=== PATIENT | female | born 1980 | race Two or more races ===

== ENCOUNTER 2017-10-23 09:27 | Emergency (ER) | payer SELFPAY ==
[2017-10-23 09:41] VITALS: BP 113/57
[2017-10-23] MEDS ORDERED: Ketorolac 60 MG/2 ML SDV IM ONE (09:57)
--- NOTE | 2017-10-23 10:07 | EDM.PDOC ---
ED HPI GENERAL MEDICAL PROBLEM - General Chief Complaint: Upper Extremity Injury/Pain Stated Complaint: LT ARM HURTS Time Seen by Provider: 10/23/17 09:45 - History of Present Illness INITIAL COMMENTS - FREE TEXT/NARRATIVE: HISTORY AND PHYSICAL: History of present illness: The patient is a 37 y/o female who presents with acute onset of pain to her anterior left shoulder area extending into her biceps that started while she was at work today doing a repetitive behavior which involves a circular twisting motion. She says while she was doing his motion today she felt a "pop like sensation" in this region and has had pain. She has not taken anything for the pain and she came directly for work. The patient says she has a history of a biceps rupture in the past which took many months for them to diagnose and she did have surgical repair. Concerned about that but she did not know sending gross swelling of the biceps and there is discomfort when she engages her upper extremity at the elbow but she is able to do it. She has no weakness but there is discomfort. She has no neurosensory changes in the arm and no other systemic complaints or other trauma. Patient has a history of a hysterectomy. Review of systems: As per history of present illness and below otherwise all systems reviewed and negative. Past medical history: As per history of present illness and as reviewed below otherwise noncontributory. Surgical history: As per history of present illness and as reviewed below otherwise noncontributory. Social history: No reported history of drug or alcohol abuse. Family history: As per history of present illness and as reviewed below otherwise noncontributory. Physical exam: Gen.: Well-developed well-nourished female who is nontoxic. Vital signs reviewed by me HEENT: Atraumatic, normocephalic, negative for conjunctival pallor or scleral icterus, mucous membranes moist, throat clear, neck supple, nontender, trachea midline. Lungs: Clear to auscultation, breath sounds equal bilaterally, chest nontender. Heart: S1S2, regular rate and rhythm no overt murmurs Abdomen: Soft, nondistended, nontender. NABS. Pelvis: Deferred Genitourinary: Deferred. Rectal: Deferred. Extremities: Atraumatic appearing but there is discrete tenderness at palpation of the anterior shoulder area at the trigger point fullness as well as tenderness with palpation of the anterior humeral area and the biceps region. There is no evidence of any soft tissue swelling in the compartment is soft and there is no ecchymosis or falling up of the biceps musculature itself. I'm able to palpate the tendinous insertion of the biceps distally and on both passive and active range of motion there is no evidence of any muscular deformity. There is no bony tenderness of the elbow forearm wrist or hand and neurovascular is intact. The patient says that there is discomfort with movements that we are doing. The legs are, negative for cords or calf pain. Neurovascular unremarkable. Neuro: Awake, alert, oriented. Cranial nerves II through XII unremarkable. Cerebellum unremarkable. Motor and sensory unremarkable throughout. Exam nonfocal. Diagnostics: X-ray left shoulder/humerus Therapeutics: Toradol sling Impression: Left shoulder/biceps injury Definitive disposition and diagnosis as appropriate pending reevaluation and review of above. left upper arm Pain Score (Numeric/FACES): 7 - Related Data Allergies Allergy/AdvReac Type Severity Reaction Status Date / Time acetaminophen [From Percocet] Allergy Vomiting Verified 10/23/17 09:38 hydrocodone bitartrate Allergy Vomiting Verified 10/23/17 09:38 [From Lortab] oxycodone HCl [From Percocet] Allergy Vomiting Verified 10/23/17 09:38 Huckleberries Allergy Difficulty Uncoded 10/23/17 09:38 Swallowing Mushrooms Allergy Difficulty Uncoded 10/23/17 09:38 Swallowing Home Meds: Home Meds . 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 Social & Family History - Family History Family Medical History: Noncontributory - Tobacco Use Smoking Status *Q: Current Every Day Smoker Years of Tobacco use: 23 Packs/Tins Daily: 0.2 - Caffeine Use Caffeine Use: Reports: Coffee - Alcohol Use Days Per Week of Alcohol Use: 1 Number of Drinks Per Day: 6 Total Drinks Per Week: 6 - Recreational Drug Use Recreational Drug Use: No Drug Use in Last 12 Months: No Review of Systems - Review of Systems Review Of Systems: ROS reveals no pertinent complaints other than HPI. ED EXAM, GENERAL - Physical Exam Exam: See Below (See dictation) Course - Vital Signs Last Recorded V/S: Last Vital Signs Temp 36.4 C 10/23/17 09:38 Pulse 74 10/23/17 09:38 Resp 18 10/23/17 09:38 BP 113/57 L 10/23/17 09:38 Pulse Ox 96 10/23/17 09:38 - Orders/Labs/Meds Orders: Active Orders 24 hr Category Date Time Status DME for Discharge [COMM] Stat Oth 10/23/17 11:03 Ordered Meds: Medications Discontinued Medications Generic Name Dose Route Start Last Admin Trade Name Merrittq PRN Reason Stop Dose Admin Ketorolac Tromethamine 60 mg 10/23/17 09:57 10/23/17 10:17 Toradol IM 10/23/17 09:58 60 mg ONETIME ONE Administration Departure - Departure Time of Disposition: 11:05 Disposition: Home, Self-Care 01 Condition: Good Clinical Impression: Injury of left shoulder, Unspecified injury of muscle, fascia and tendon of other parts of biceps, left arm, sequela - Discharge Information Referrals: PCP,None [Primary Care Provider] - Forms: ED Department Discharge Additional Instructions: The following information is given to patients seen in the emergency department who are being discharged to home. This information is to outline your options for follow-up care. We provide all patients seen in our emergency department with a follow-up referral. The need for follow-up, as well as the timing and circumstances, are variable depending upon the specifics of your emergency department visit. If you don't have a primary care physician on staff, we will provide you with a referral. We always advise you to contact your personal physician following an emergency department visit to inform them of the circumstance of the visit and for follow-up with them and/or the need for any referrals to a consulting specialist. The emergency department will also refer you to a specialist when appropriate. This referral assures that you have the opportunity for followup care with a specialist. All of these measure are taken in an effort to provide you with optimal care, which includes your followup. Under all circumstances we always encourage you to contact your private physician who remains a resource for coordinating your care. When calling for followup care, please make the office aware that this follow-up is from your recent emergency room visit. If for any reason you are refused follow-up, please contact the [facility] emergency department at and ask to speak to the emergency department charge nurse. [facility]--Orthopedic clinic Professional [address] [address] Ice and elevate the area as much as possible and use medications as prescribed and needed. You may return to work but no use of the left upper extremity until you're seen in the orthopedic clinic. Wear sling at all times you're up and about and continue to move the hand wrist and elbow slowly and carefully to reduce swelling of these areas due to inactivity. - My Orders Last 24 Hours: My Active Orders 10/23/17 11:03 DME for Discharge [COMM] Stat - Assessment/Plan Last 24 Hours: My Active Orders 10/23/17 11:03 DME for Discharge [COMM] Stat
--- NOTE | 2017-10-23 10:52 | CR ---
EXAMINATION: Left shoulder HISTORY: Pain COMPARISON: None TECHNIQUE: 3 views FINDINGS/IMPRESSION: There is no acute osseous abnormality, dislocation, or fracture. Bone mineraliza tion and joint spaces appear normal.
--- NOTE | 2017-10-23 10:55 | CR ---
EXAMINATION: Left humerus HISTORY: Pain COMPARISON: None TECHNIQUE: 2 views FINDINGS/IMPRESSION: There is no acute osseous abnormality, dislocation, or fracture. Bone mineraliza tion and joint spaces appear preserved. No focal soft tissue swelling or elbow joint effusion.
== END 2017-10-23 11:24 | disposition home or self-care (01) ==
LOC: MW.ED 09:27
DX: S46.20 Unspecified injury of muscle, fascia and tendon of other parts of biceps (principal); S49.92XS Unspecified injury of left shoulder and upper arm, sequela; F17.210 Nicotine dependence, cigarettes, uncomplicated; Z98.890 Other specified postprocedural states; Z88.6 Allergy status to analgesic agent; Z88.5 Allergy status to narcotic agent; Z91.018 Allergy to other foods; X50.3XXS Overexertion from repetitive movements, sequela; Y99.0 Civilian activity done for income or pay
CPT/HCPCS: 73030; 73060; 96372; 99283; J1885; 99284

== ENCOUNTER 2018-07-01 19:47 | Emergency (ER) | payer BC | END 2018-07-01 20:48 | disposition left against medical advice (07) | LOC: MW.ED 19:47 | DX: Z53.21 Procedure and treatment not carried out due to patient leaving prior to being seen by health care provider (principal) ==

== ENCOUNTER 2018-12-14 08:20 | Emergency (ER) | payer BC ==
--- NOTE | 2018-12-14 08:34 | EDM.PDOC ---
ED HPI GENERAL MEDICAL PROBLEM - General Chief Complaint: Head Injury Stated Complaint: blurry vision Time Seen by Provider: 12/14/18 08:26 - History of Present Illness INITIAL COMMENTS - FREE TEXT/NARRATIVE: HISTORY AND PHYSICAL: History of present illness: Age 38-year-old female presents status post fall on Friday in which she struck her head this is a mechanical fall she states she was drinking was no reported loss of consciousness she presents today with concern of headache she denies neck pain visual disturbance numbness weakness or any other neurological signs or symptoms apart from headache Review of systems: As per history of present illness and below otherwise all systems reviewed and negative. Past medical history: As per history of present illness and as reviewed below otherwise noncontributory. Surgical history: As per history of present illness and as reviewed below otherwise noncontributory. Social history: No reported history of drug or alcohol abuse. Family history: As per history of present illness and as reviewed below otherwise noncontributory. Physical exam: HEENT: Atraumatic, normocephalic, pupils reactive, negative for conjunctival pallor or scleral icterus, mucous membranes moist, throat clear, neck supple, nontender, trachea midline. Lungs: Clear to auscultation, breath sounds equal bilaterally, chest nontender. Heart: S1S2, regular, negative for clicks, rubs, or JVD. Abdomen: Soft, nondistended, nontender. Negative for masses or hepatosplenomegaly. Negative for costovertebral tenderness. Pelvis: Stable nontender. Genitourinary: Deferred. Rectal: Deferred. Extremities: Atraumatic, negative for cords or calf pain. Neurovascular unremarkable. Neuro: Awake, alert, oriented. Cranial nerves II through XII unremarkable. Cerebellum unremarkable. Motor and sensory unremarkable throughout. Exam nonfocal. Diagnostics: CT brain Therapeutics: None Impression: #1 head injury Definitive disposition and diagnosis as appropriate pending reevaluation and review of above. - Related Data Allergies Allergy/AdvReac Type Severity Reaction Status Date / Time acetaminophen [From Percocet] Allergy Vomiting Verified 10/23/17 09:38 hydrocodone bitartrate Allergy Vomiting Verified 10/23/17 09:38 [From Lortab] oxycodone HCl [From Percocet] Allergy Vomiting Verified 10/23/17 09:38 Huckleberries Allergy Difficulty Uncoded 10/23/17 09:38 Swallowing Mushrooms Allergy Difficulty Uncoded 10/23/17 09:38 Swallowing Home Meds: Home Meds . 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 Social & Family History - Family History Family Medical History: Noncontributory - Caffeine Use Caffeine Use: Reports: Coffee ED ROS GENERAL - Review of Systems Review Of Systems: ROS reveals no pertinent complaints other than HPI. ED EXAM, HEAD INJURY - Physical Exam Exam: See Below (See dictation) Departure - Departure Time of Disposition: 08:33 Disposition: Home, Self-Care 01 Condition: Good Clinical Impression: Head injury - Discharge Information Referrals: PCP,Unknown [Primary Care Provider] - Additional Instructions: The following information is given to patients seen in the emergency department who are being discharged to home. This information is to outline your options for follow-up care. We provide all patients seen in our emergency department with a follow-up referral. The need for follow-up, as well as the timing and circumstances, are variable depending upon the specifics of your emergency department visit. If you don't have a primary care physician on staff, we will provide you with a referral. We always advise you to contact your personal physician following an emergency department visit to inform them of the circumstance of the visit and for follow-up with them and/or the need for any referrals to a consulting specialist. The emergency department will also refer you to a specialist when appropriate. This referral assures that you have the opportunity for followup care with a specialist. All of these measure are taken in an effort to provide you with optimal care, which includes your followup. Under all circumstances we always encourage you to contact your private physician who remains a resource for coordinating your care. When calling for followup care, please make the office aware that this follow-up is from your recent emergency room visit. If for any reason you are refused follow-up, please contact the [facility] emergency department at and asked to speak to the emergency department charge nurse. Motrin/Tylenol as directed follow-up primary medical doctor as needed as discussed and return as needed as discussed
[2018-12-14 08:43] VITALS: BP 117/70
--- NOTE | 2018-12-14 09:15 | CT ---
EXAMINATION: Non contrast CT head. Coronal and sagittal reformats. HISTORY: Head injury FINDINGS: No evidence of intra or extra axial hemorrhage, mass, midline shift, hydrocephalus or edema. No hypoattenuation changes in the major vascular territories to suggest acute infarct. No abnormal intracranial calcifications are detected. No evidence of substantial vascular calcifications. Tiny mucosal retention cyst within the right maxillary sinus. Paranasal sinuses, mastoid air cells, middle ears are otherwise intact. Orbits and globes are symmetric. Pituitary fossa appears unremarkable. The calvarium is intact. No evidence of skull fracture. IMPRESSION: No acute intracranial findings.
== END 2018-12-14 09:29 | disposition home or self-care (01) ==
LOC: MW.ED 08:20
DX: S09.90XA Unspecified injury of head, initial encounter (principal); F17.210 Nicotine dependence, cigarettes, uncomplicated; Z91.018 Allergy to other foods; Z88.8 Allergy status to other drugs, medicaments and biological substances; Z90.710 Acquired absence of both cervix and uterus; W01.198A Fall on same level from slipping, tripping and stumbling with subsequent striking against other object, initial encounter
CPT/HCPCS: 70450; 70450-26; 99283-25

== ENCOUNTER 2019-06-01 09:05 | Observation (INO) | payer BC, OTHER ==
--- NOTE | 2019-06-01 09:50 | EDM.PDOC ---
ED HPI GENERAL MEDICAL PROBLEM - General Chief Complaint: Respiratory Problem Stated Complaint: COUGH, CHEST PAIN, FEVER Time Seen by Provider: 06/01/19 09:19 Source of Information: Reports: Patient History Limitations: Reports: No Limitations - History of Present Illness INITIAL COMMENTS - FREE TEXT/NARRATIVE: History of present illness: []Patient has a history of sarcoidosis and has had a cough, shortness of breath , sore throat, fevers, chills and hoarseness for a week and a half. She was treated in another urgency room with a steroid shot and put on amoxicillin. His completed that without any relief of symptoms. Review of systems: As per history of present illness and below otherwise all systems reviewed and negative. Past medical history: As per history of present illness and as reviewed below otherwise noncontributory. Surgical history: As per history of present illness and as reviewed below otherwise noncontributory. Social history: No reported history of drug or alcohol abuse. Family history: As per history of present illness and as reviewed below otherwise noncontributory. Physical exam: General: Well developed, well nourished in NAD HEENT: Atraumatic, normocephalic, pupils reactive, negative for conjunctival pallor or scleral icterus, mucous membranes moist, throat clear, neck supple, nontender, trachea midline. No stridor Lungs: Bilateral rhonchi, chest nontender, no chest wall retractions Heart: S1S2, regular, negative for clicks, rubs, or JVD. Abdomen: NABS, Soft, nondistended, nontender. Negative for masses or hepatosplenomegaly. Negative for costovertebral tenderness. Pelvis: Stable nontender. Genitourinary: Deferred. Rectal: Deferred. Extremities: Atraumatic, negative for cords or calf pain. Neurovascular unremarkable. Neuro: Awake, alert, oriented. Cranial nerves II through XII unremarkable. Cerebellum unremarkable. Motor and sensory unremarkable throughout. Exam nonfocal. Skin:warm and dry Diagnostics: Chest x-ray, CBC, blood cultures, chemistry, lactic acid Therapeutics: IV hydration, DuoNeb, Levaquin IV ED Course: Patient is hypoxic at rest but has a normal O2 sat when trying to talk Impression: Bilateral Interstitial pneumonia Prescriptions: none Plan: Admit to hospitalist Definitive disposition and diagnosis as appropriate pending reevaluation and review of above. Throat Pain Score (Numeric/FACES): 6 - Related Data Allergies Allergy/AdvReac Type Severity Reaction Status Date / Time acetaminophen [From Percocet] Allergy Vomiting Verified 06/01/19 09:16 hydrocodone bitartrate Allergy Vomiting Verified 06/01/19 09:16 [From Lortab] oxycodone HCl [From Percocet] Allergy Vomiting Verified 06/01/19 09:16 Huckleberries Allergy Difficulty Uncoded 06/01/19 09:16 Swallowing Mushrooms Allergy Difficulty Uncoded 06/01/19 09:16 Swallowing Home Meds: Home Meds . 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 Social & Family History - Family History Family Medical History: Noncontributory - Tobacco Use Smoking Status *Q: Current Every Day Smoker Years of Tobacco use: 5 Packs/Tins Daily: 0.5 - Caffeine Use Caffeine Use: Reports: Tea - Recreational Drug Use Recreational Drug Use: No ED ROS GENERAL - Review of Systems Review Of Systems: See Below ED EXAM, GENERAL - Physical Exam Exam: See Below Course - Vital Signs Last Recorded V/S: Last Vital Signs Temp 98.1 F 06/01/19 11:42 Pulse 75 06/01/19 11:42 Resp 18 06/01/19 11:42 BP 97/54 L 06/01/19 11:42 Pulse Ox 91 L 06/01/19 11:42 - Orders/Labs/Meds Orders: Active Orders 24 hr Category Date Time Status Patient Status [ADT] Stat ADT 06/01/19 11:37 Active RT Aerosol Therapy [RC] ASDIRECTED Care 06/01/19 10:01 Active CULTURE BLOOD [BC] Stat Lab 06/01/19 10:33 Received CULTURE BLOOD [BC] Stat Lab 06/01/19 10:53 Results Sodium Chloride 0.9% [Saline Flush] Med 06/01/19 10:25 Active 10 ml FLUSH ASDIRECTED PRN Sodium Chloride 0.9% [Saline Flush] Med 06/01/19 10:25 Active 2.5 ml FLUSH ASDIRECTED PRN Blood Culture x2 Reflex Set [OM.PC] Stat Oth 06/01/19 10:25 Ordered Saline Lock Insert [OM.PC] Stat Oth 06/01/19 10:25 Ordered Medication Orders Acetaminophen (Tylenol) 650 mg PO Q4H PRN PRN Reason: Pain (Mild 1-3)/fever Enoxaparin Sodium (Lovenox) 40 mg SUBCUT Q24H [place] Azithromycin 250 mg/ Sodium (Chloride) 250 mls @ 250 mls/hr IV Q24H [place] Ceftriaxone Sodium/Dextrose 1 (gm/ Premix) 50 mls @ 100 mls/hr IV Q24H [place] Sodium Chloride (Normal Saline) 1,000 mls @ 100 mls/hr IV STAT ONE Stop: 06/01/19 22:07 Ondansetron HCl (Zofran Odt) 4 mg PO Q4H PRN PRN Reason: nausea, able to take PO Ondansetron HCl (Zofran) 4 mg IVPUSH Q4H PRN PRN Reason: Nausea Sodium Chloride (Saline Flush) 10 ml FLUSH ASDIRECTED PRN PRN Reason: Keep Vein Open Last Admin: 06/01/19 10:37 Dose: 10 ml Sodium Chloride (Saline Flush) 2.5 ml FLUSH ASDIRECTED PRN PRN Reason: Keep Vein Open Last Admin: 06/01/19 10:37 Dose: 2.5 ml Labs: Laboratory Tests 06/01/19 06/01/19 06/01/19 Range/Units 10:33 10:33 10:33 WBC 11.58 H (4.0-11.0) K/uL RBC 4.46 (4.30-5.90) M/uL Hgb 13.5 (12.0-16.0) g/dL Hct 41.5 (36.0-46.0) % MCV 93.0 (80.0-98.0) fL MCH 30.3 (27.0-32.0) pg MCHC 32.5 (31.0-37.0) g/dL RDW Std Deviation 44.7 (28.0-62.0) fl RDW Coeff of Christin 13 (11.0-15.0) % Plt Count 317 (150-400) K/uL MPV 10.40 (7.40-12.00) fL Neut % (Auto) 73.7 (48.0-80.0) % Lymph % (Auto) 18.3 (16.0-40.0) % Cecil % (Auto) 6.1 (0.0-15.0) % Eos % (Auto) 1.6 (0.0-7.0) % Baso % (Auto) 0.3 (0.0-1.5) % Neut # (Auto) 8.5 H (1.4-5.7) K/uL Lymph # (Auto) 2.1 (0.6-2.4) K/uL Cecil # (Auto) 0.7 (0.0-0.8) K/uL Eos # (Auto) 0.2 (0.0-0.7) K/uL Baso # (Auto) 0.0 (0.0-0.1) K/uL Nucleated RBC % 0.0 /100WBC Nucleated RBCs # 0 K/uL Lactate 0.9 (0.20-2.00) mmol/L Sodium 140 (136-145) mmol/L Potassium 3.5 (3.5-5.1) mmol/L Chloride 104 (98-107) mmol/L Carbon Dioxide 24.6 (21.0-32.0) mmol/L BUN 7 (7.0-18.0) mg/dL Creatinine 0.5 L (0.6-1.0) mg/dL Est Cr Clr Drug Dosing 131.74 mL/min Estimated GFR (MDRD) > 60.0 ml/min Glucose 93 (74-106) mg/dL Calcium 8.9 (8.5-10.1) mg/dL Total Bilirubin 0.5 (0.2-1.0) mg/dL AST 17 (15-37) IU/L ALT 19 (14-63) IU/L Alkaline Phosphatase 72 (46-116) U/L Total Protein 7.8 (6.4-8.2) g/dL Albumin 3.2 L (3.4-5.0) g/dL Globulin 4.6 H (2.6-4.0) g/dL Albumin/Globulin Ratio 0.7 L (0.9-1.6) Meds: Medications Generic Name Dose Route Start Last Admin Trade Name Merrittq PRN Reason Stop Dose Admin Acetaminophen 650 mg 06/01/19 12:04 Tylenol PO Q4H PRN Pain (Mild 1-3)/fever Enoxaparin Sodium 40 mg 06/01/19 12:15 Lovenox SUBCUT Q24H [place] Azithromycin 250 mg/ Sodium 250 mls @ 250 mls/hr 06/01/19 12:15 Chloride IV Q24H [place] Ceftriaxone Sodium/Dextrose 1 50 mls @ 100 mls/hr 06/01/19 12:15 gm/ Premix IV Q24H [place] Sodium Chloride 1,000 mls @ 100 mls/hr 06/01/19 12:08 Normal Saline IV 06/01/19 22:07 STAT ONE Ondansetron HCl 4 mg 06/01/19 12:04 Zofran Odt PO Q4H PRN nausea, able to take PO Ondansetron HCl 4 mg 06/01/19 12:04 Zofran IVPUSH Q4H PRN Nausea Sodium Chloride 10 ml 06/01/19 10:25 06/01/19 10:37 Saline Flush FLUSH 10 ml ASDIRECTED PRN Administration Keep Vein Open Sodium Chloride 2.5 ml 06/01/19 10:25 06/01/19 10:37 Saline Flush FLUSH 2.5 ml ASDIRECTED PRN Administration Keep Vein Open Discontinued Medications Generic Name Dose Route Start Last Admin Trade Name Merrittq PRN Reason Stop Dose Admin Albuterol/Ipratropium 3 ml 06/01/19 10:01 06/01/19 10:06 Duoneb 3.0-0.5 Mg/3 Ml NEB 06/01/19 10:02 3 ml ONETIME ONE Administration Levofloxacin/Dextrose 500 mg/ 100 mls @ 100 mls/hr 06/01/19 10:25 06/01/19 11 :42 Premix IV 06/01/19 11:24 100 mls/hr ONETIME ONE Administration Sodium Chloride 1,000 mls @ 999 mls/hr 06/01/19 10:26 06/01/19 10:36 Normal Saline IV 06/01/19 11:26 999 mls/hr .Bolus ONE Administration Departure - Departure Time of Disposition: 12:17 Disposition: Admitted As Inpatient 67 Condition: Good Clinical Impression: Interstitial pneumonia - Discharge Information - My Orders Last 24 Hours: My Active Orders 06/01/19 10:01 RT Aerosol Therapy [RC] ASDIRECTED 06/01/19 10:25 Sodium Chloride 0.9% [Saline Flush] 10 ml FLUSH ASDIRECTED PRN Sodium Chloride 0.9% [Saline Flush] 2.5 ml FLUSH ASDIRECTED PRN Blood Culture x2 Reflex Set [OM.PC] Stat Saline Lock Insert [OM.PC] Stat 06/01/19 10:33 CULTURE BLOOD [BC] Stat 06/01/19 10:53 CULTURE BLOOD [BC] Stat 06/01/19 11:37 Patient Status [ADT] Stat - Assessment/Plan Last 24 Hours: My Active Orders 06/01/19 10:01 RT Aerosol Therapy [RC] ASDIRECTED 06/01/19 10:25 Sodium Chloride 0.9% [Saline Flush] 10 ml FLUSH ASDIRECTED PRN Sodium Chloride 0.9% [Saline Flush] 2.5 ml FLUSH ASDIRECTED PRN Blood Culture x2 Reflex Set [OM.PC] Stat Saline Lock Insert [OM.PC] Stat 06/01/19 10:33 CULTURE BLOOD [BC] Stat 06/01/19 10:53 CULTURE BLOOD [BC] Stat 06/01/19 11:37 Patient Status [ADT] Stat
[2019-06-01] MEDS ORDERED: Albuterol/Ipratropium 3.0-0.5 MG/3 ML Neb Soln NEB ONE (10:01)
[2019-06-01] MEDS ORDERED: Sodium Chloride 0.9% 2.5 ML Syringe FLUSH PRN (10:25)
[2019-06-01] MEDS ORDERED: Levofloxacin/Dextrose 5%-Water 500 MG in Premix Bag 1 BAG IV ONE (10:25)
[2019-06-01] MEDS ORDERED: Sodium Chloride 0.9% 10 ML Syringe FLUSH PRN (10:25)
[2019-06-01] MEDS ORDERED: Sodium Chloride 0.9% 1,000 ML IV ONE ×3 (10:26→18:19)
--- NOTE | 2019-06-01 10:36 | CR ---
CHEST 2 VIEWS INDICATION: Sore throat. Cough. Congestion. COMPARISON: Two-view chest 10/18/2015. IMPRESSION: 1. The lung volumes are decreased. 2. There are patchy areas of alveolar opacity which could suggest possible areas of pneumonia in the right midlung possibly in the superior segment lower lobe and in the left lower lobe. 3. Radiographic follow up is suggested after treatment to evaluate resolution. FINDINGS: The lung volumes are decreased. Patchy areas of possible alveolar opacity are suggested in the right mid lung on the PA view and in the left lower lobe on both views. Heart size is normal with mild crowding of vascular markings allowing for technique and low lung volumes. No effusions or pneumothorax. Dictated by Pedro Reyna MD @ Jun 01 2019 10:35AM Signed by Dr. Pedro Reyna @ Jun 01 2019 10:35AM
[2019-06-01 11:25] LABS: CHLORIDE,CL 104 mmol/L (98-107); SODIUM,NA 140 mmol/L (136-145)
[2019-06-01] MEDS ORDERED: Ondansetron 4 MG Tab.DIS PO PRN (12:04)
[2019-06-01] MEDS ORDERED: Ondansetron 4 MG/2 ML SDV IVPUSH PRN (12:04)
[2019-06-01] MEDS ORDERED: Acetaminophen 325 MG Tab PO PRN (12:04)
[2019-06-01] MEDS ORDERED: Azithromycin 250 MG in Sodium Chloride 0.9% 250 ML IV SCH (12:15)
[2019-06-01] MEDS ORDERED: Enoxaparin 40 MG/0.4 ML Syringe SUBCUT SCH (12:15)
[2019-06-01] MEDS ORDERED: cefTRIAXone 1 GM in Premix Bag 1 BAG IV SCH (12:15)
[2019-06-01] MEDS ORDERED: Azithromycin 500 MG in Sodium Chloride 0.9% 250 ML IV SCH ×2 (13:15→15:01)
[2019-06-01] MEDS ORDERED: Phenol 1.4% Oral Spray 177 ML Bottle MUCMEM PRN (14:28)
[2019-06-01] MEDS: predniSONE 20 MG Tab PO SCH (15:15)
[2019-06-02 06:26] LABS: CHLORIDE,CL 107 mmol/L (98-107); SODIUM,NA 141 mmol/L (136-145)
[2019-06-02] MEDS: predniSONE 20 MG Tab PO SCH (09:02)
[2019-06-02 09:18] VITALS: BP 107/55
--- NOTE | 2019-06-02 10:32 | PCM.DCSUM1 ---
<Jackson Carter - Last Filed: 06/02/19 10:27> Discharge Summary - Hospital Course Free Text/Narrative:: [id number]-female admitted for community acquire pneumonia. She has a PMH of sarcoidosis. CXR on admission showed opacities which could represent developing pneumonia in right mid lung and left lower lobe. Patient's WBC count was slightly elevated but normalized on day of discharge. She was started on IV ceftriaxone, IV azithromycin and oral prednisone. She remained afebrile during the course of her hospitalization. She tolerated oral diet well. She was discharged on a 5 day course of doxycycline and 3 more days of prednisone 40 mg daily. She was also given instructions to use incentive spirometer. Patient instructed to follow-up with her PCP and a last sawyer for her sarcoidosis. - Discharge Data Discharge Date: 06/02/19 Discharge Disposition: Home, Self-Care 01 Condition: Fair - Discharge Diagnosis/Problem(s) (1) Community acquired pneumonia SNOMED Code(s): 738049056 ICD Code: J18.9 - PNEUMONIA, UNSPECIFIED ORGANISM Status: Acute (2) Sarcoidosis SNOMED Code(s): 85082922 ICD Code: D86.9 - SARCOIDOSIS, UNSPECIFIED Status: Acute - Patient Instructions Diet: Regular Diet as Tolerated Activity: As Tolerated Notify Provider of: Fever, Increased Pain, Swelling and Redness, Drainage, Nausea and/or Vomiting - Discharge Plan *PRESCRIPTION DRUG MONITORING PROGRAM REVIEWED*: Not Applicable *COPY OF PRESCRIPTION DRUG MONITORING REPORT IN PATIENT EDELMIRA: Not Applicable Prescriptions/Med Rec: Albuterol [Ventolin HFA] 2 puff INH Q4H PRN #1 each PRN Reason: Other Benzonatate [Tessalon Perle] 100 mg PO TID PRN 5 Days #15 capsule PRN Reason: Cough Doxycycline [Vibramycin] 100 mg PO BID 5 Days #10 cap predniSONE [Prednisone] 40 mg PO DAILY 3 Days #6 tablet Home Medications: Home Meds Albuterol [Ventolin HFA] 2 puff INH Q4H PRN #1 each 06/02/19 [Rx] Benzonatate [Tessalon Perle] 100 mg PO TID PRN 5 Days #15 capsule 06/02/19 [Rx] Doxycycline [Vibramycin] 100 mg PO BID 5 Days #10 cap 06/02/19 [Rx] predniSONE [Prednisone] 40 mg PO DAILY 3 Days #6 tablet 06/02/19 [Rx] Patient Handouts: Albuterol inhalation aerosol, Doxycycline tablets or capsules , Prednisone tablets, Benzonatate capsules, Community-Acquired Pneumonia, Adult , [id number] Referrals: [facility] [Outside] Lesvia Philip MD [Ordering Only Provider] - 06/09/19 8:30 am - Discharge Summary/Plan Comment DC Time >30 min.: No - Patient Data Vitals - Most Recent: Last Vital Signs Temp 98.4 F 06/02/19 08:00 Pulse 67 06/02/19 08:00 Resp 18 06/02/19 08:00 BP 107/55 L 06/02/19 08:00 Pulse Ox 94 L 06/02/19 08:00 Weight - Most Recent: 76.521 kg I&O - Last 24 hours: Intake & Output 06/01/19 06/02/19 06/02/19 22:59 06:59 14:59 Intake Total 1740 970 Output Total 400 1800 Balance 1340 -830 Lab Results - Last 24 hrs: Laboratory Results - last 24 hr 06/01/19 06/01/19 06/01/19 Range/Units 10:33 10:33 10:33 WBC 11.58 H (4.0-11.0) K/uL RBC 4.46 (4.30-5.90) M/uL Hgb 13.5 (12.0-16.0) g/dL Hct 41.5 (36.0-46.0) % MCV 93.0 (80.0-98.0) fL MCH 30.3 (27.0-32.0) pg MCHC 32.5 (31.0-37.0) g/dL RDW Std Deviation 44.7 (28.0-62.0) fl RDW Coeff of Christin 13 (11.0-15.0) % Plt Count 317 (150-400) K/uL MPV 10.40 (7.40-12.00) fL Neut % (Auto) 73.7 (48.0-80.0) % Lymph % (Auto) 18.3 (16.0-40.0) % [place] % (Auto) 6.1 (0.0-15.0) % Eos % (Auto) 1.6 (0.0-7.0) % Baso % (Auto) 0.3 (0.0-1.5) % Neut # (Auto) 8.5 H (1.4-5.7) K/uL Lymph # (Auto) 2.1 (0.6-2.4) K/uL [place] # (Auto) 0.7 (0.0-0.8) K/uL Eos # (Auto) 0.2 (0.0-0.7) K/uL Baso # (Auto) 0.0 (0.0-0.1) K/uL Add Manual Diff Nucleated RBC % 0.0 /100WBC Nucleated RBCs # 0 K/uL Lactate 0.9 (0.20-2.00) mmol/L Sodium 140 (136-145) mmol/L Potassium 3.5 (3.5-5.1) mmol/L Chloride 104 (98-107) mmol/L Carbon Dioxide 24.6 (21.0-32.0) mmol/L BUN 7 (7.0-18.0) mg/dL Creatinine 0.5 L (0.6-1.0) mg/dL Est Cr Clr Drug Dosing 131.74 mL/min Estimated GFR (MDRD) > 60.0 ml/min Glucose 93 (74-106) mg/dL Calcium 8.9 (8.5-10.1) mg/dL Total Bilirubin 0.5 (0.2-1.0) mg/dL AST 17 (15-37) IU/L ALT 19 (14-63) IU/L Alkaline Phosphatase 72 (46-116) U/L Total Protein 7.8 (6.4-8.2) g/dL Albumin 3.2 L (3.4-5.0) g/dL Globulin 4.6 H (2.6-4.0) g/dL Albumin/Globulin Ratio 0.7 L (0.9-1.6) 06/02/19 06/02/19 06/02/19 Range/Units 05:52 05:52 05:52 WBC Cancelled 9.18 (4.0-11.0) K/uL RBC Cancelled 3.93 L (4.30-5.90) M/uL Hgb Cancelled 11.7 L (12.0-16.0) g/dL Hct Cancelled 37.1 (36.0-46.0) % MCV Cancelled 94.4 (80.0-98.0) fL MCH Cancelled 29.8 (27.0-32.0) pg MCHC Cancelled 31.5 (31.0-37.0) g/dL RDW Std Deviation Cancelled 45.3 (28.0-62.0) fl RDW Coeff of Christin Cancelled 13 (11.0-15.0) % Plt Count Cancelled 327 (150-400) K/uL MPV Cancelled 10.10 (7.40-12.00) fL Neut % (Auto) Cancelled 65.9 (48.0-80.0) % Lymph % (Auto) Cancelled 23.6 (16.0-40.0) % [place] % (Auto) Cancelled 9.2 (0.0-15.0) % Eos % (Auto) Cancelled 1.0 (0.0-7.0) % Baso % (Auto) Cancelled 0.3 (0.0-1.5) % Neut # (Auto) Cancelled 6.1 H (1.4-5.7) K/uL Lymph # (Auto) Cancelled 2.2 (0.6-2.4) K/uL [place] # (Auto) Cancelled 0.8 (0.0-0.8) K/uL Eos # (Auto) Cancelled 0.1 (0.0-0.7) K/uL Baso # (Auto) Cancelled 0.0 (0.0-0.1) K/uL Add Manual Diff Cancelled Nucleated RBC % Cancelled 0.0 /100WBC Nucleated RBCs # Cancelled 0 K/uL Lactate (0.20-2.00) mmol/L Sodium 141 (136-145) mmol/L Potassium 3.9 (3.5-5.1) mmol/L Chloride 107 (98-107) mmol/L Carbon Dioxide 30.4 (21.0-32.0) mmol/L BUN 6 L (7.0-18.0) mg/dL Creatinine 0.5 L (0.6-1.0) mg/dL Est Cr Clr Drug Dosing 131.74 mL/min Estimated GFR (MDRD) > 60.0 ml/min Glucose 107 H (74-106) mg/dL Calcium 8.5 (8.5-10.1) mg/dL Total Bilirubin (0.2-1.0) mg/dL AST (15-37) IU/L ALT (14-63) IU/L Alkaline Phosphatase (46-116) U/L Total Protein (6.4-8.2) g/dL Albumin (3.4-5.0) g/dL Globulin (2.6-4.0) g/dL Albumin/Globulin Ratio (0.9-1.6) CIELO Results - Last 24 hrs: Microbiology 06/01/19 12:46 Group A Streptococcus Rapid Screen - Final Throat NEGATIVE STREP A SCREEN REFERENCE RANGE: NEGATIVE 06/01/19 11:00 Legionella Antigen - Final Urine, Clean Catch 06/01/19 11:00 Streptococcus pneumoniae Ag Screen - Final Urine 06/01/19 10:53 Anaerobic Blood Culture - Final Blood - Venous - Lab Draw Med Orders - Current: Current Medications Acetaminophen (Tylenol) 650 mg PO Q4H PRN PRN Reason: Pain (Mild 1-3)/fever Last Admin: 06/01/19 13:39 Dose: 650 mg Enoxaparin Sodium (Lovenox) 40 mg SUBCUT Q24H [facility] Last Admin: 06/01/19 13:31 Dose: 40 mg Ceftriaxone Sodium/Dextrose 1 (gm/ Premix) 50 mls @ 100 mls/hr IV Q24H [facility] Last Admin: 06/01/19 13:26 Dose: 100 mls/hr Azithromycin 500 mg/ Sodium (Chloride) 250 mls @ 250 mls/hr IV Q24H [facility] Last Admin: 06/01/19 15:16 Dose: 250 mls/hr Ondansetron HCl (Zofran Odt) 4 mg PO Q4H PRN PRN Reason: nausea, able to take PO Ondansetron HCl (Zofran) 4 mg IVPUSH Q4H PRN PRN Reason: Nausea Phenol/Menthol (Chloraseptic Throat [place]) 0 ml MUCMEM Q2H PRN PRN Reason: Sore Throat Last Admin: 06/01/19 20:57 Dose: 5 spray Prednisone (Prednisone) 40 mg PO WITHBREAKFAST [place] Stop: 06/06/19 14:31 Last Admin: 06/02/19 09:02 Dose: 40 mg Sodium Chloride (Saline Flush) 10 ml FLUSH ASDIRECTED PRN PRN Reason: Keep Vein Open Last Admin: 06/01/19 10:37 Dose: 10 ml Sodium Chloride (Saline Flush) 2.5 ml FLUSH ASDIRECTED PRN PRN Reason: Keep Vein Open Last Admin: 06/01/19 10:37 Dose: 2.5 ml Discontinued Medications Albuterol/Ipratropium (Duoneb 3.0-0.5 Mg/3 Ml) 3 ml NEB ONETIME ONE Stop: 06/01/19 10:02 Last Admin: 06/01/19 10:06 Dose: 3 ml Levofloxacin/Dextrose 500 mg/ (Premix) 100 mls @ 100 mls/hr IV ONETIME ONE Stop: 06/01/19 11:24 Last Admin: 06/01/19 11:42 Dose: 100 mls/hr Sodium Chloride (Normal Saline) 1,000 mls @ 999 mls/hr IV .Bolus ONE Stop: 06/01/19 11:26 Last Admin: 06/01/19 10:36 Dose: 999 mls/hr Azithromycin 250 mg/ Sodium (Chloride) 250 mls @ 250 mls/hr IV Q24H [place] Last Admin: 06/01/19 14:30 Dose: Not Given Sodium Chloride (Normal Saline) 1,000 mls @ 100 mls/hr IV STAT ONE Stop: 06/01/19 22:07 Last Admin: 06/01/19 13:14 Dose: 100 mls/hr Azithromycin 500 mg/ Sodium (Chloride) 250 mls @ 250 mls/hr IV Q24H [facility] Last Admin: 06/01/19 16:03 Dose: Not Given Sodium Chloride (Normal Saline) 1,000 mls @ 75 mls/hr IV STAT ONE Stop: 06/02/19 07:38 Last Admin: 06/01/19 22:47 Dose: 75 mls/hr <Miguel Angel Sauer - Last Filed: 06/02/19 13:10> Discharge Summary - Hospital Course HPI Initial Comments: I have seen and examined the patient independently of the medical assembler, Dr. Raul MD. I have reviewed and approve of the plan of care as outlined by the resident. I have discussed the case with the resident. Please see orders. - Patient Data Vitals - Most Recent: Last Vital Signs Temp 36.9 C 08/14/19 08:00 Pulse 67 06/02/19 08:00 Resp 18 06/02/19 08:00 BP 107/55 L 06/02/19 08:00 Pulse Ox 94 L 06/02/19 08:00 I&O - Last 24 hours: Intake & Output 06/01/19 06/02/19 06/02/19 22:59 06:59 14:59 Intake Total 1740 970 Output Total 400 1800 Balance 1340 -830 Lab Results - Last 24 hrs: Laboratory Results - last 24 hr 06/02/19 06/02/19 06/02/19 Range/Units 05:52 05:52 05:52 WBC Cancelled 9.18 RBC Cancelled 3.93 L Hgb Cancelled 11.7 L Hct Cancelled 37.1 MCV Cancelled 94.4 MCH Cancelled 29.8 MCHC Cancelled 31.5 RDW Std Deviation Cancelled 45.3 RDW Coeff of Christin Cancelled 13 Plt Count Cancelled 327 MPV Cancelled 10.10 Neut % (Auto) Cancelled 65.9 Lymph % (Auto) Cancelled 23.6 [place] % (Auto) Cancelled 9.2 Eos % (Auto) Cancelled 1.0 Baso % (Auto) Cancelled 0.3 Neut # (Auto) Cancelled 6.1 H Lymph # (Auto) Cancelled 2.2 [place] # (Auto) Cancelled 0.8 Eos # (Auto) Cancelled 0.1 Baso # (Auto) Cancelled 0.0 Add Manual Diff Cancelled Nucleated RBC % Cancelled 0.0 Nucleated RBCs # Cancelled 0 Sodium 141 (136-145) mmol/L Potassium 3.9 (3.5-5.1) mmol/L Chloride 107 (98-107) mmol/L Carbon Dioxide 30.4 (21.0-32.0) mmol/L BUN 6 L (7.0-18.0) mg/dL Creatinine 0.5 L (0.6-1.0) mg/dL Est Cr Clr Drug Dosing 131.74 mL/min Estimated GFR (MDRD) > 60.0 ml/min Glucose 107 H (74-106) mg/dL Calcium 8.5 (8.5-10.1) mg/dL CIELO Results - Last 24 hrs: Microbiology 06/01/19 10:53 Aerobic Blood Culture - Preliminary Blood - Venous - Lab Draw NO GROWTH AFTER 1 DAY Anaerobic Blood Culture - Final 06/01/19 10:33 Aerobic Blood Culture - Preliminary Blood - Venous NO GROWTH AFTER 1 DAY Anaerobic Blood Culture - Preliminary NO GROWTH AFTER 1 DAY 06/01/19 12:46 Group A Streptococcus Rapid Screen - Final Throat NEGATIVE STREP A SCREEN REFERENCE RANGE: NEGATIVE 06/01/19 11:00 Legionella Antigen - Final Urine, Clean Catch 06/01/19 11:00 Streptococcus pneumoniae Ag Screen - Final Urine Med Orders - Current: Current Medications Discontinued Medications Acetaminophen (Tylenol) 650 mg PO Q4H PRN PRN Reason: Pain (Mild 1-3)/fever Last Admin: 06/01/19 13:39 Dose: 650 mg Albuterol/Ipratropium (Duoneb 3.0-0.5 Mg/3 Ml) 3 ml NEB ONETIME ONE Stop: 06/01/19 10:02 Last Admin: 06/01/19 10:06 Dose: 3 ml Enoxaparin Sodium (Lovenox) 40 mg SUBCUT Q24H [facility] Last Admin: 06/01/19 13:31 Dose: 40 mg Levofloxacin/Dextrose 500 mg/ (Premix) 100 mls @ 100 mls/hr IV ONETIME ONE Stop: 06/01/19 11:24 Last Admin: 06/01/19 11:42 Dose: 100 mls/hr Sodium Chloride (Normal Saline) 1,000 mls @ 999 mls/hr IV .Bolus ONE Stop: 06/01/19 11:26 Last Admin: 06/01/19 10:36 Dose: 999 mls/hr Azithromycin 250 mg/ Sodium (Chloride) 250 mls @ 250 mls/hr IV Q24H [facility] Last Admin: 06/01/19 14:30 Dose: Not Given Ceftriaxone Sodium/Dextrose 1 (gm/ Premix) 50 mls @ 100 mls/hr IV Q24H [facility] Last Admin: 06/01/19 13:26 Dose: 100 mls/hr Sodium Chloride (Normal Saline) 1,000 mls @ 100 mls/hr IV STAT ONE Stop: 06/01/19 22:07 Last Admin: 06/01/19 13:14 Dose: 100 mls/hr Azithromycin 500 mg/ Sodium (Chloride) 250 mls @ 250 mls/hr IV Q24H [facility] Last Admin: 06/01/19 16:03 Dose: Not Given Azithromycin 500 mg/ Sodium (Chloride) 250 mls @ 250 mls/hr IV Q24H [place] Last Admin: 06/01/19 15:16 Dose: 250 mls/hr Sodium Chloride (Normal Saline) 1,000 mls @ 75 mls/hr IV STAT ONE Stop: 06/02/19 07:38 Last Admin: 06/01/19 22:47 Dose: 75 mls/hr Ondansetron HCl (Zofran Odt) 4 mg PO Q4H PRN PRN Reason: nausea, able to take PO Ondansetron HCl (Zofran) 4 mg IVPUSH Q4H PRN PRN Reason: Nausea Phenol/Menthol (Chloraseptic Throat [place]) 0 ml MUCMEM Q2H PRN PRN Reason: Sore Throat Last Admin: 06/01/19 20:57 Dose: 5 spray Prednisone (Prednisone) 40 mg PO WITHBREAKFAST [place] Stop: 06/06/19 14:31 Last Admin: 06/02/19 09:02 Dose: 40 mg Sodium Chloride (Saline Flush) 10 ml FLUSH ASDIRECTED PRN PRN Reason: Keep Vein Open Last Admin: 06/01/19 10:37 Dose: 10 ml Sodium Chloride (Saline Flush) 2.5 ml FLUSH ASDIRECTED PRN PRN Reason: Keep Vein Open Last Admin: 06/01/19 10:37 Dose: 2.5 ml
== END 2019-06-02 10:35 | disposition home or self-care (01) ==
LOC: MW.ED 09:05 → MW.MS 11:43
PROVIDERS: ADMIT Internal Medicine; ATTEND Internal Medicine
DX: J18.1 Lobar pneumonia, unspecified organism (principal); D86.9 Sarcoidosis, unspecified; Z88.5 Allergy status to narcotic agent; Z91.018 Allergy to other foods
CPT/HCPCS: 36415; 71046; 80048; 80053; 83605; 85025; 87040; 87081; 87880; 87899; 94640; 96361; 96365; 99284; A9270; J0456; J0696; J1650; J1956; J7040; J7050; 96360; 96367; 96372; 96375; G0378; J7620-GY

== ENCOUNTER 2019-10-05 18:48 | Emergency (ER) | payer BC, OTHER ==
--- NOTE | 2019-10-05 19:27 | EDM.PDOC ---
ED HPI GENERAL MEDICAL PROBLEM - General Chief Complaint: Respiratory Problem Stated Complaint: PT HAS FLU SYMPTOMS Time Seen by Provider: 10/05/19 19:19 Source of Information: Reports: Patient History Limitations: Reports: No Limitations - History of Present Illness INITIAL COMMENTS - FREE TEXT/NARRATIVE: HISTORY AND PHYSICAL: History of present illness: Patient is a 39-year-old female who presents to the emergency room with complaints of subjective fevers, generalized body aches, cough, headache, nausea , and several loose stools which all have started this morning. She is concerned she may have the flu or pneumonia. Patient denies any injury/trauma, change in vision, syncope or near syncope. Denies any chest pain, neck/back pain or shortness of breath. Denies any abdominal pain, vomiting, constipation or dysuria. Has not noted any blood in urine or stool. Denies any chance of . Patient has been eating and drinking appropriately. Review of systems: As per history of present illness and below otherwise all systems reviewed and negative. Past medical history: As per history of present illness and as reviewed below otherwise noncontributory. Surgical history: As per history of present illness and as reviewed below otherwise noncontributory. Social history: See social history for further information Family history: As per history of present illness and as reviewed below otherwise noncontributory. Physical exam: General: Well developed and well nourished 39-year-old female. Alert and oriented. Nontoxic-appearing and in no acute distress. HEENT: Atraumatic, normocephalic, pupils equal and reactive bilaterally, negative for conjunctival pallor or scleral icterus, mucous membranes moist, TMs normal bilaterally, throat clear, neck supple, nontender, trachea midline. No drooling or trismus noted. No meningeal signs. No hot potato voice noted. Lungs: Clear to auscultation, breath sounds equal bilaterally, chest nontender. Heart: S1S2, regular rate and rhythm without overt murmur Abdomen: Soft, nondistended, nontender. Negative for masses or hepatosplenomegaly. Negative for costovertebral tenderness. Pelvis: Stable nontender. Skin: Intact, warm, dry. No lesions or rashes noted. Extremities: Atraumatic, moves all extremities per self without difficulty or deficits, negative for cords or calf pain. Neurovascular unremarkable. Neuro: Awake, alert, oriented. Cranial nerves II through XII unremarkable. Cerebellum unremarkable. Motor and sensory unremarkable throughout. Exam nonfocal. Notes: X-ray shows a patchy left basilar airspace consistent with pneumonia. Currently afebrile and her oxygen saturation is in normal limits. She has been able to keep fluids down while here. She should do well on outpatient therapy. We discussed signs and symptoms that would prompt her to return to the emergency room. Medication and supportive care measures were reviewed and discussed. Voices understanding and is agreeable to plan of care. Denies any further questions or concerns at this time. Diagnostics: Influenza screening, CXR Therapeutics: Toradol IM, Zofran Prescription: Levaquin Pro-air inhaler Phenergan with codeine (#4oz) Impression: Pneumonia, left Plan: 1. Standard contact precautions (covering mouth while coughing, avoid sharing drinking cups and eating utensils). Please make sure you're doing good handwashing as this is contagious. 2. Please take the medications take as directed. 3. Supportive care measures such as Tylenol and/or ibuprofen for pain and fever management. Encourage small frequent sips of fluids to prevent dehydration. 4. Follow-up with your computer specialist in the next 1-2 days. Return to the ED as needed and as discussed. Definitive disposition and diagnosis as appropriate pending reevaluation and review of above. generalized Pain Score (Numeric/FACES): 8 - Related Data Allergies Allergy/AdvReac Type Severity Reaction Status Date / Time oxycodone HCl [From Percocet] Allergy Vomiting Verified 10/05/19 19:10 Huckleberries Allergy Difficulty Uncoded 10/05/19 19:10 Swallowing Mushrooms Allergy Difficulty Uncoded 10/05/19 19:10 Swallowing Home Meds: Home Meds . 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 Social & Family History - Family History Family Medical History: Noncontributory - Tobacco Use Smoking Status *Q: Current Every Day Smoker Years of Tobacco use: 25 Packs/Tins Daily: 0.5 - Caffeine Use Caffeine Use: Reports: Tea - Recreational Drug Use Recreational Drug Use: No ED ROS GENERAL - Review of Systems Review Of Systems: Comprehensive ROS is negative, except as noted in HPI. ED EXAM, GENERAL - Physical Exam Exam: See Below (See dictation) Course - Vital Signs Last Recorded V/S: Last Vital Signs Temp 97.3 F 10/05/19 19:07 Pulse 91 10/05/19 19:07 Resp 18 10/05/19 19:07 BP 107/66 10/05/19 19:07 Pulse Ox 96 10/05/19 19:07 - Orders/Labs/Meds Meds: Medications Discontinued Medications Generic Name Dose Route Start Last Admin Trade Name Freq PRN Reason Stop Dose Admin Ketorolac Tromethamine 60 mg 10/05/19 19:45 10/05/19 20:12 Toradol IM 10/05/19 19:46 60 mg ONETIME ONE Administration Ondansetron HCl 4 mg 10/05/19 19:45 10/05/19 20:11 Zofran Odt PO 10/05/19 19:46 4 mg ONETIME ONE Administration Departure - Departure Time of Disposition: 20:32 Disposition: Home, Self-Care 01 Clinical Impression: Pneumonia Qualifiers: Pneumonia type: due to unspecified organism Laterality: left Lung location: lower lobe of lung Qualified Code(s): J18.9 - Pneumonia, unspecified organism - Discharge Information Instructions: Community-Acquired Pneumonia, Adult, [id number] Referrals: PCP,None [Primary Care Provider] - Forms: ED Department Discharge Additional Instructions: The following information is given to patients seen in the emergency department who are being discharged to home. This information is to outline your options for follow-up care. We provide all patients seen in our emergency department with a follow-up referral. The need for follow-up, as well as the timing and circumstances, are variable depending upon the specifics of your emergency department visit. If you don't have a primary care physician on staff, we will provide you with a referral. We always advise you to contact your personal physician following an emergency department visit to inform them of the circumstance of the visit and for follow-up with them and/or the need for any referrals to a consulting specialist. The emergency department will also refer you to a specialist when appropriate. This referral assures that you have the opportunity for follow-up care with a specialist. All of these measure are taken in an effort to provide you with optimal care, which includes your follow-up. Under all circumstances we always encourage you to contact your private physician who remains a resource for coordinating your care. When calling for follow-up care, please make the office aware that this follow-up is from your recent emergency room visit. If for any reason you are refused follow-up, please contact the [facility] Emergency Department at and asked to speak to the emergency department charge nurse. [facility] [address] [place] [id number] [place] [address] 1. Standard contact precautions (covering mouth while coughing, avoid sharing drinking cups and eating utensils). Please make sure you're doing good handwashing. 2. Please take the medications take as directed. 3. Supportive care measures such as Tylenol and/or ibuprofen for pain and fever management. Encourage small frequent sips of fluids to prevent dehydration. 4. Follow-up with your computer specialist in the next 1-2 days. Return to the ED as needed and as discussed. Sepsis Event Note - Evaluation Sepsis Screening Result: No Definite Risk - Focused Exam Vital Signs: Vital Signs Temp Pulse Resp BP Pulse Ox 10/05/19 19:07 97.3 F 91 18 107/66 96 Date Exam was Performed: 10/05/19 Time Exam was Performed: 20:30
[2019-10-05] MEDS ORDERED: Ondansetron 4 MG Tab.DIS PO ONE (19:45)
[2019-10-05] MEDS ORDERED: Ketorolac 60 MG/2 ML SDV IM ONE (19:45)
--- NOTE | 2019-10-05 20:27 | CR ---
INDICATION: Shortness of breath, chest pain and body aches. TECHNIQUE: Chest 2 views COMPARISON: Chest x-ray 06/01/2019 FINDINGS: Cardiovascular and mediastinum: Heart size and vasculature are normal in caliber and appearance. Lungs and pleural spaces: No pleural effusion or pneumothorax. Patchy left lower lobe airspace disease. Bones and soft tissues: No significant findings. IMPRESSION: Patchy left basilar airspace disease consistent with atelectasis or pneumonia. Dictated by Tu Street MD @ Oct 05 2019 8:24PM Signed by Dr. Tu Street @ Oct 05 2019 8:26PM
[2019-10-05 21:11] VITALS: BP 103/52; PULSE 85
== END 2019-10-05 20:45 | disposition home or self-care (01) ==
LOC: MW.ED 18:48
DX: J18.9 Pneumonia, unspecified organism (principal); F17.210 Nicotine dependence, cigarettes, uncomplicated; Z88.5 Allergy status to narcotic agent; Z91.018 Allergy to other foods
CPT/HCPCS: 71046; 87804; 96372; 99284; A9270; J1885; 99283

== ENCOUNTER 2019-10-06 04:29 | Emergency (ER) | payer BC ==
[2019-10-06] MEDS ORDERED: Ketorolac 30 MG/ML SDV IVPUSH ONE (04:58)
[2019-10-06] MEDS ORDERED: Albuterol/Ipratropium 3.0-0.5 MG/3 ML Neb Soln NEB ONE (04:58)
[2019-10-06] MEDS ORDERED: Sodium Chloride 0.9% 2.5 ML Syringe FLUSH PRN (04:58)
[2019-10-06] MEDS ORDERED: Ondansetron 4 MG/2 ML SDV IVPUSH ONE (04:58)
[2019-10-06] MEDS ORDERED: Sodium Chloride 0.9% 1,000 ML IV ONE (04:58)
[2019-10-06] MEDS ORDERED: Sodium Chloride 0.9% 10 ML Syringe FLUSH PRN (04:58)
--- NOTE | 2019-10-06 05:02 | EDM.PDOC ---
ED HPI GENERAL MEDICAL PROBLEM - General Chief Complaint: Respiratory Problem Stated Complaint: PNEUMONIA Time Seen by Provider: 10/06/19 04:45 - History of Present Illness INITIAL COMMENTS - FREE TEXT/NARRATIVE: HISTORY AND PHYSICAL: History of present illness: Patient is a 39-year-old female with a history of sarcoidosis who was seen here earlier for body aches cough diffuse chest and back pain diarrhea some nausea and was worked up with a chest x-ray which revealed a left basilar infiltrate as well as influenza which was negative, she received Toradol and Zofran and got a refill of her inhaler Phenergan with codeine cough syrup and got Levaquin here and for home. The patient did not have enough money to fill her inhaler and only got the cough medicine and the Levaquin and she re-presents now saying that she still has diffuse body aches and feels worse and feels like she cannot take a deep breath. She has no more diarrhea but still has some nausea and no abdominal pain. She is had no new fevers. Review of systems: As per history of present illness and below otherwise all systems reviewed and negative. Past medical history: As per history of present illness and as reviewed below otherwise noncontributory. Surgical history: As per history of present illness and as reviewed below otherwise noncontributory. Social history: No reported history of drug or alcohol abuse. Family history: As per history of present illness and as reviewed below otherwise noncontributory. Physical exam: General: Well-developed well-nourished female who speaks clearly without breathlessness or hoarse or muffled voice HEENT: Atraumatic, normocephalic, pupils reactive, negative for conjunctival pallor or scleral icterus, mucous membranes moist, throat clear, neck supple, nontender, trachea midline. Lungs: Clear to auscultation but diminished effort and breath sounds in all lung smith and no wheezing stridor or work of breathing, breath sounds equal bilaterally, chest nontender. Heart: S1S2, regular, negative for clicks, rubs, or JVD. Abdomen: Soft, nondistended, nontender. Negative for masses or hepatosplenomegaly. Negative for costovertebral tenderness. Pelvis: Stable nontender. Genitourinary: Deferred. Rectal: Deferred. Extremities: Atraumatic, negative for cords or calf pain. Neurovascular unremarkable. no Pedal edema or leg asymmetry Neuro: Awake, alert, oriented. Cranial nerves II through XII unremarkable. Cerebellum unremarkable. Motor and sensory unremarkable throughout. Exam nonfocal. Diagnostics: CBC CMP lactic acid CTA of the chest Therapeutics: IV fluids Toradol Zofran DuoNeb The patient is aware of all findings and continues to be stable here in the ED. I discussed with her to continue with the care plan was implemented earlier and she needs to fill her prescription for her and her inhaler. Impression: Generalized body aches and malaise, recently diagnosed with pneumonia stable Definitive disposition and diagnosis as appropriate pending reevaluation and review of above. - Related Data Allergies Allergy/AdvReac Type Severity Reaction Status Date / Time oxycodone HCl [From Percocet] Allergy Vomiting Verified 10/06/19 04:53 Huckleberries Allergy Difficulty Uncoded 10/06/19 04:53 Swallowing Mushrooms Allergy Difficulty Uncoded 10/06/19 04:53 Swallowing Home Meds: Home Meds . 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 Social & Family History - Family History Family Medical History: Noncontributory - Caffeine Use Caffeine Use: Reports: Tea ED ROS GENERAL - Review of Systems Review Of Systems: Comprehensive ROS is negative, except as noted in HPI. ED EXAM, GENERAL - Physical Exam Exam: See Below (see dictation) Course - Vital Signs Last Recorded V/S: Last Vital Signs Temp 36.6 C 10/06/19 06:13 Pulse 86 10/06/19 06:13 Resp 18 10/06/19 06:13 BP 106/50 L 10/06/19 06:13 Pulse Ox 93 L 10/06/19 06:13 - Orders/Labs/Meds Orders: Active Orders 24 hr Category Date Time Status RT Aerosol Therapy [RC] ASDIRECTED Care 10/06/19 04:59 Active Sodium Chloride 0.9% [Saline Flush] Med 10/06/19 04:58 Active 10 ml FLUSH ASDIRECTED PRN Sodium Chloride 0.9% [Saline Flush] Med 10/06/19 04:58 Active 2.5 ml FLUSH ASDIRECTED PRN Saline Lock Insert [OM.PC] Stat Oth 10/06/19 04:57 Ordered Medication Orders Sodium Chloride (Saline Flush) 10 ml FLUSH ASDIRECTED PRN PRN Reason: Keep Vein Open Sodium Chloride (Saline Flush) 2.5 ml FLUSH ASDIRECTED PRN PRN Reason: Keep Vein Open Labs: Laboratory Tests 10/06/19 10/06/19 10/06/19 Range/Units 05:06 05:06 05:06 WBC 7.02 (4.0-11.0) K/uL RBC 4.54 (4.30-5.90) M/uL Hgb 13.4 (12.0-16.0) g/dL Hct 41.6 (36.0-46.0) % MCV 91.6 (80.0-98.0) fL MCH 29.5 (27.0-32.0) pg MCHC 32.2 (31.0-37.0) g/dL RDW Std Deviation 44.4 (28.0-62.0) fl RDW Coeff of Christin 13 (11.0-15.0) % Plt Count 272 (150-400) K/uL MPV 10.70 (7.40-12.00) fL Neut % (Auto) 84.8 H (48.0-80.0) % Lymph % (Auto) 7.1 L (16.0-40.0) % Billings % (Auto) 7.1 (0.0-15.0) % Eos % (Auto) 0.9 (0.0-7.0) % Baso % (Auto) 0.1 (0.0-1.5) % Neut # (Auto) 6.0 H (1.4-5.7) K/uL Lymph # (Auto) 0.5 L (0.6-2.4) K/uL Billings # (Auto) 0.5 (0.0-0.8) K/uL Eos # (Auto) 0.1 (0.0-0.7) K/uL Baso # (Auto) 0.0 (0.0-0.1) K/uL Nucleated RBC % 0.0 /100WBC Nucleated RBCs # 0 K/uL Lactate 0.9 (0.20-2.00) mmol/L Sodium 137 (136-145) mmol/L Potassium 3.4 L (3.5-5.1) mmol/L Chloride 101 (98-107) mmol/L Carbon Dioxide 25.4 (21.0-32.0) mmol/L BUN 12 (7.0-18.0) mg/dL Creatinine 0.7 (0.6-1.0) mg/dL Est Cr Clr Drug Dosing 94.10 mL/min Estimated GFR (MDRD) > 60.0 ml/min Glucose 100 (74-106) mg/dL Calcium 8.0 L (8.5-10.1) mg/dL Total Bilirubin 0.8 (0.2-1.0) mg/dL AST 12 L (15-37) IU/L ALT 22 (14-63) IU/L Alkaline Phosphatase 67 (46-116) U/L Total Protein 7.4 (6.4-8.2) g/dL Albumin 3.3 L (3.4-5.0) g/dL Globulin 4.1 H (2.6-4.0) g/dL Albumin/Globulin Ratio 0.8 L (0.9-1.6) Meds: Medications Generic Name Dose Route Start Last Admin Trade Name Freq PRN Reason Stop Dose Admin Sodium Chloride 10 ml 10/06/19 04:58 Saline Flush FLUSH ASDIRECTED PRN Keep Vein Open Sodium Chloride 2.5 ml 10/06/19 04:58 Saline Flush FLUSH ASDIRECTED PRN Keep Vein Open Discontinued Medications Generic Name Dose Route Start Last Admin Trade Name Freq PRN Reason Stop Dose Admin Albuterol/Ipratropium 3 ml 10/06/19 04:58 10/06/19 05:09 Duoneb 3.0-0.5 Mg/3 Ml NEB 10/06/19 04:59 3 ml ONETIME ONE Administration Sodium Chloride 1,000 mls @ 999 mls/hr 10/06/19 04:58 10/06/19 05:11 Normal Saline IV 10/06/19 05:58 999 mls/hr STAT ONE Administration Iopamidol 80 ml 10/06/19 05:57 10/06/19 05:57 Isovue Multipack-370 (76%) IVPUSH 10/06/19 05:58 80 ml ONETIME ONE Administration Ketorolac Tromethamine 30 mg 10/06/19 04:58 10/06/19 05:14 Toradol IVPUSH 10/06/19 04:59 30 mg ONETIME ONE Administration Ondansetron HCl 4 mg 10/06/19 04:58 10/06/19 05:12 Zofran IVPUSH 10/06/19 04:59 4 mg ONETIME ONE Administration Departure - Departure Time of Disposition: 07:11 Disposition: Home, Self-Care 01 Condition: Good Clinical Impression: Generalized body aches Pneumonia Qualifiers: Pneumonia type: due to unspecified organism Laterality: left Lung location: lower lobe of lung Qualified Code(s): J18.9 - Pneumonia, unspecified organism - Discharge Information Referrals: PCP,None [Primary Care Provider] - Forms: ED Department Discharge Additional Instructions: The following information is given to patients seen in the emergency department who are being discharged to home. This information is to outline your options for follow-up care. We provide all patients seen in our emergency department with a follow-up referral. The need for follow-up, as well as the timing and circumstances, are variable depending upon the specifics of your emergency department visit. If you don't have a primary care physician on staff, we will provide you with a referral. We always advise you to contact your personal physician following an emergency department visit to inform them of the circumstance of the visit and for follow-up with them and/or the need for any referrals to a consulting specialist. The emergency department will also refer you to a specialist when appropriate. This referral assures that you have the opportunity for followup care with a specialist. All of these measure are taken in an effort to provide you with optimal care, which includes your followup. Under all circumstances we always encourage you to contact your private physician who remains a resource for coordinating your care. When calling for followup care, please make the office aware that this follow-up is from your recent emergency room visit. If for any reason you are refused follow-up, please contact the [facility] emergency department at and ask to speak to the emergency department charge nurse. [facility] Primary care- Internal Medicine and Family [facility] [address] [place] [id number] The prescriptions that you were given earlier yesterday and fill the 1 4 at your inhaler as you need this to help keep your airways open. Push hydration and use [id number] meds for body aches and pains. Follow-up in the clinic and return to ER as needed and as discussed Sepsis Event Note - Evaluation Sepsis Screening Result: No Definite Risk - Focused Exam Vital Signs: Vital Signs Temp Pulse Resp BP Pulse Ox 10/06/19 06:13 36.6 C 86 18 106/50 L 93 L 10/06/19 04:53 36.8 C 97 20 108/50 L 96 Date Exam was Performed: 10/06/19 Time Exam was Performed: 07:10 - My Orders Last 24 Hours: My Active Orders 10/06/19 04:57 Saline Lock Insert [OM.PC] Stat 10/06/19 04:58 Sodium Chloride 0.9% [Saline Flush] 10 ml FLUSH ASDIRECTED PRN Sodium Chloride 0.9% [Saline Flush] 2.5 ml FLUSH ASDIRECTED PRN 10/06/19 04:59 RT Aerosol Therapy [RC] ASDIRECTED - Assessment/Plan Last 24 Hours: My Active Orders 10/06/19 04:57 Saline Lock Insert [OM.PC] Stat 10/06/19 04:58 Sodium Chloride 0.9% [Saline Flush] 10 ml FLUSH ASDIRECTED PRN Sodium Chloride 0.9% [Saline Flush] 2.5 ml FLUSH ASDIRECTED PRN 10/06/19 04:59 RT Aerosol Therapy [RC] ASDIRECTED
[2019-10-06 05:35] LABS: BLOOD UREA NITROGEN,BUN 12 mg/dL (7.0-18.0); CARBON DIOXIDE,CO2 25.4 mmol/L (21.0-32.0); CHLORIDE,CL 101 mmol/L (98-107); GLUCOSE RANDOM 100 mg/dL (74-106); POTASSIUM,K 3.4 mmol/L (3.5-5.1); SODIUM,NA 137 mmol/L (136-145)
[2019-10-06] MEDS ORDERED: Iopamidol 755 MG/ML 200 ML Multipack Bottle IVPUSH ONE (05:57)
--- NOTE | 2019-10-06 07:09 | CT ---
INDICATION: Chest, abdominal, and back pain. Chest radiograph with pneumonia on 10/05/2019. Rule out bigger process or PE. History of sarcoidosis. COMPARISON: Chest radiograph 10/05/2019 and 06/01/2019. TECHNIQUE: CT volumetric acquisition was performed of the thorax during intravenous infusion of 80 cc of Isovue 370 nonionic intravenous contrast. FINDINGS: Normal heart size. Normal variant origin of the left common carotid artery from the innominate artery. Normal caliber thoracic aorta and central pulmonary arteries. No acute pulmonary embolism. No pericardial effusion. No thoracic lymphadenopathy. There are patchy and streaky opacities in both lung bases which have the appearance of atelectasis. No focal consolidation. No pleural effusion or pneumothorax. No pulmonary nodules identified. The visualized thyroid gland is normal in appearance. Splenule. The remainder of the visualized upper abdomen is unremarkable. IMPRESSION: 1. Negative for acute pulmonary embolism. 2. Patchy and streaky opacities in both lung bases which have the appearance of atelectasis. No definite pneumonia. 3. No evidence of pulmonary sarcoidosis. Please note that all CT scans at this facility use dose modulation, iterative reconstruction, and/or weight-based dosing when appropriate to reduce radiation dose to as low as reasonably achievable. Dictated by Suzette Ramesh MD @ Oct 06 2019 6:58AM Signed by Dr. Suzette Ramesh @ Oct 06 2019 7:07AM
[2019-10-06 07:22] VITALS: BP 97/42; PULSE 94
== END 2019-10-06 07:28 | disposition home or self-care (01) ==
LOC: MW.ED 04:29
DX: J18.9 Pneumonia, unspecified organism (principal); J45.909 Unspecified asthma, uncomplicated; Z88.5 Allergy status to narcotic agent; Z91.018 Allergy to other foods
CPT/HCPCS: 36415; 71275; 80053; 83605; 85025; 94640; 96361; 96374; 96375; 99285; J1885; J2405; J7030; Q9967; 99284; J7620-GY

== ENCOUNTER 2020-06-29 08:22 | Emergency (ER) | payer SELFPAY ==
[2020-06-29] MEDS ORDERED: Ketorolac 30 MG/ML SDV IM ONE (09:07)
[2020-06-29] MEDS ORDERED: Metoclopramide 10 MG/2 ML SDV IM ONE (09:07)
--- NOTE | 2020-06-29 09:08 | EDM.PDOC ---
ED HPI GENERAL MEDICAL PROBLEM - General Chief Complaint: Headache Stated Complaint: HEAD ACHE Time Seen by Provider: 06/29/20 08:32 - History of Present Illness INITIAL COMMENTS - FREE TEXT/NARRATIVE: HPI-the patient is a headache. Started a week ago. It comes and goes. It was fairly sudden but it feels like a vice around her head with 10 out of 10 pain nothing makes it better. Nothing makes it worse. She has little photophobia. She is not vomiting. She has had a hysterectomy so she is not . She does not feel particularly stressed. She does not have any fever or signs of infection. History of present illness: [] Review of systems: As per history of present illness and below otherwise all systems reviewed and negative. Past medical history: As per history of present illness and as reviewed below otherwise noncontributory. Surgical history: As per history of present illness and as reviewed below otherwise noncontributory. Social history: No reported history of drug or alcohol abuse. Family history: As per history of present illness and as reviewed below otherwise noncontributory. Physical exam: Constitutional - well developed, well-nourished and in no acute distress HEENT -Brudzinski sign negative normocephalic, no evidence of trauma - external nose and mouth normal - no mass in neck and no JVD - mucosae moist -tender in the frontal area. No signs of nasal congestion or sinus congestion. EYES - full EOM, PERRL, no icterus - no evidence of inflammation, injection, or drainage Respiratory - no respiratory distress, equal bilateral expansion, lungs clear to auscultation and no abnormal lung sounds Cardiovascular - Regular Rhythm with S1 and S2 appreciated and no murmur, gallop or rub. GI - abdomen soft without distension or organomegaly - normal bowel sounds - no guard or rebound Musculoskeletal Kernig sign negative no gross deformity of long bones or joints - no tenderness, swelling or edema Neurologic - Alert and oriented times four - CN II-XII grossly intact - motor sensory and coordination symmetrically normal Psychiatric - appropriate mood and affect with normal thought content Hematologic - No petechiae or purpura - mucosa appropriate color and sclera not pale - normal nail bed color and refill Integument - no rash or evidence of trauma - normal turgor Diagnostics: [] Therapeutics: [] Impression: [] Plan: [] Definitive disposition and diagnosis as appropriate pending reevaluation and review of above. HEAD PAIN Pain Score (Numeric/FACES): 8 - Related Data Allergies Allergy/AdvReac Type Severity Reaction Status Date / Time oxycodone HCl [From Percocet] Allergy Vomiting Verified 06/29/20 08:33 Huckleberries Allergy Difficulty Uncoded 06/29/20 08:33 Swallowing Mushrooms Allergy Difficulty Uncoded 06/29/20 08:33 Swallowing Home Meds: Home Meds diazePAM [Valium] 5 mg PO TID PRN #15 tab 06/29/20 [Rx] Past Medical History HEENT History: Reports: None Cardiovascular History: Reports: None Respiratory History: Reports: Asthma, Pneumothorax Other Respiratory History: sarcodosis Gastrointestinal History: Reports: None Genitourinary History: Reports: 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 Social & Family History - Family History Family Medical History: Noncontributory - Caffeine Use Caffeine Use: Reports: Tea ED ROS GENERAL - Review of Systems Review Of Systems: Comprehensive ROS is negative, except as noted in HPI. ED EXAM, GENERAL - Physical Exam Exam: See Below Free Text/Narrative:: My physical exam is in the HPI Course - Vital Signs Last Recorded V/S: Last Vital Signs Temp 98.1 F 06/29/20 09:50 Pulse 62 06/29/20 09:50 Resp 16 06/29/20 09:50 BP 100/58 L 06/29/20 09:50 Pulse Ox 99 06/29/20 09:50 - Orders/Labs/Meds Meds: Medications Discontinued Medications Generic Name Dose Route Start Last Admin Trade Name Freq PRN Reason Stop Dose Admin Ketorolac Tromethamine 30 mg 06/29/20 09:07 06/29/20 09:35 Toradol IM 06/29/20 09:08 30 mg ONETIME ONE Administration Metoclopramide HCl 10 mg 06/29/20 09:07 06/29/20 09:33 Reglan IM 06/29/20 09:08 10 mg ONETIME ONE Administration Departure - Departure Time of Disposition: 09:50 Disposition: Home, W Home Health Agency 06 Condition: Good Clinical Impression: Tension-type headache - Discharge Information Prescriptions: diazePAM [Valium] 5 mg PO TID PRN #15 tab PRN Reason: Headache Instructions: Tension Headache, Adult Referrals: Lesvia Philip MD [Primary Care Provider] - Forms: ED Department Discharge Additional Instructions: Use [id number] NSAIDs and the muscle relaxer as prescribed. Do not take the muscle relaxer if you are driving or going to work. Call your Dr. if not starting to improve tomorrow. If he has fever or stiff neck return. [facility] [address] [place], [place] [id number] [place] [id number] The following information is given to patients seen in the emergency department who are being discharged to home. This information is to outline your options for follow-up care. We provide all patients seen in our emergency department with a follow-up referral. The need for follow-up, as well as the timing and circumstances, are variable depending upon the specifics of your emergency department visit. If you don't have a primary care physician on staff, we will provide you with a referral. We always advise you to contact your personal physician following an emergency department visit to inform them of the circumstance of the visit and for follow-up with them and/or the need for any referrals to a consulting speci alist. The emergency department will also refer you to a specialist when appropriate. This referral assures that you have the opportunity for follow-up care with a specialist. All of these measure are taken in an effort to provide you with optimal care, which includes your follow-up. Under all circumstances we always encourage you to contact your private physician who remains a resource for coordinating your care. When calling for follow-up care, please make the office aware that this follow-up is from your recent emergency room visit. If for any reason you are refused follow-up, please contact the [facility] Emergency Department at and asked to speak to the emergency department charge nurse. Sepsis Event Note (ED) - Evaluation Sepsis Screening Result: No Definite Risk - Focused Exam Vital Signs: Vital Signs Temp Pulse Resp BP Pulse Ox 06/29/20 09:50 98.1 F 62 16 100/58 L 99 06/29/20 09:30 56 L 16 122/62 97 06/29/20 08:31 97.6 F 72 16 120/51 L 97
[2020-06-29 09:50] VITALS: BP 100/58; PULSE 62
== END 2020-06-29 09:50 | disposition home health service (06) ==
LOC: MW.ED 08:22
DX: G44.209 Tension-type headache, unspecified, not intractable (principal); J45.909 Unspecified asthma, uncomplicated; Z88.5 Allergy status to narcotic agent; Z91.018 Allergy to other foods
CPT/HCPCS: 96372; 99283; J1885; J2765

== ENCOUNTER 2021-04-14 11:25 | Emergency (ER) | payer SELFPAY ==
[2021-04-14 12:30] VITALS: BP 104/67
[2021-04-14] MEDS ORDERED: Ibuprofen 800 MG Tab PO ONE (12:37)
--- NOTE | 2021-04-14 12:41 | EDM.PDOC ---
ED HPI GENERAL MEDICAL PROBLEM - General Chief Complaint: Lower Extremity Injury/Pain Stated Complaint: R FOOT INJURED Time Seen by Provider: 04/14/21 11:38 Source of Information: Reports: Patient History Limitations: Reports: No Limitations - History of Present Illness INITIAL COMMENTS - FREE TEXT/NARRATIVE: HISTORY AND PHYSICAL: History of present illness: Patient is a 41-year-old female who presents emergency room today with concern of right foot injury that occurred yesterday. Patient states that they were cleaning out the garage and states that there was a extension cord on the floor of the garage. Patient states that when she was walking, she twisted her right foot up in the extension cord and started to fall forward. Patient states that her significant other was in front of her and caught her from completely falling so did not hit her head or lose consciousness. Patient states that she was immediately able to put weight on the foot yesterday. Patient states that when she went to bed and woke up, she has had an increase in pain and unable to bear weight due to pain of her foot. Patient denies any sensation changes or any other symptoms or concerns. Patient denies fever, chills, chest pain, shortness of breath, or cough. Denies headache, neck stiff ness, change in vision, syncope, or near syncope. Denies nausea, vomiting, abdominal pain, diarrhea, constipation, or dysuria. Has not noted any blood in urine or stool. Patient has been eating and drinking appropriately. Review of systems: As per history of present illness and below otherwise all systems reviewed and negative. Past medical history: As per history of present illness and as reviewed below otherwise noncontributory. Surgical history: As per history of present illness and as reviewed below otherwise noncontributory. Social history: See social history for further information Family history: As per history of present illness and as reviewed below otherwise noncontribut ory. Physical exam: General: Patient is alert, oriented, and in no acute distress. Patient sitting comfortably on exam table. Vitals stable and reviewed by me. HEENT: Atraumatic, normocephalic, pupils equal and reactive bilaterally, negative for conjunctival pallor or scleral icterus, mucous membranes moist, TMs normal bilaterally, throat clear, neck supple, nontender, trachea midline. No drooling or trismus noted. No meningeal signs. No hot potato voice noted. Lungs: Clear to auscultation, breath sounds equal bilaterally, chest nontender. Heart: S1S2, regular rate and rhythm without overt murmur Abdomen: Soft, nondistended, nontender. Negative for masses or hepatosplenomegaly. Negative for costovertebral tenderness. Pelvis: Stable nontender. Genitourinary: Deferred. Rectal: Deferred. Skin: Intact, warm, dry. No lesions or rashes noted. Extremities: The dorsum of the right foot is mild to moderately edematous with ecchymosis and pain to palpation of the generalized dorsum of the right foot. Patient has full range of motion of the right digits knee and hip but limited range of motion of the right ankle due to pain. Dorsalis pedis and posterior tibial pulses are intact via Doppler of the right lower extremity. Intact sensation to light and deep touch of the complete right lower extremity. All compartments are soft of the right lower extremity. Otherwise, atraumatic, negative for cords or calf pain. Neurovascular unremarkable. Neuro: Awake, alert, oriented. Cranial nerves II through XII unremarkable. Cerebellum unremarkable. Motor and sensory unremarkable throughout. Exam nonfocal. Notes: Signs and symptoms that were prompt return to the ED thoroughly discussed with patient. Discussed importance for follow-up with a video journalist. Voices understanding and is agreeable to plan of care. Denies any further questions or concerns at this time. Diagnostics: Foot and ankle x-ray Therapeutics: Postop shoe and crutches Prescription: None Impression: Right foot injury Plan: 1. Rest, ice, elevate the affected extremity. You can apply ice 15 minutes on, 15 minutes off. 2. Tylenol and/or Ibuprofen as directed for pain management or discomfort. 3. Follow up with the primary care provider as discussed. Return to the ED as needed and as discussed. Definitive disposition and diagnosis as appropriate pending reevaluation and review of above. Right Foot Pain Score (Numeric/FACES): 7 - Related Data Allergies Allergy/AdvReac Type Severity Reaction Status Date / Time oxycodone HCl [From Percocet] Allergy Vomiting Verified 04/14/21 12:27 Huckleberries Allergy Difficulty Uncoded 04/14/21 12:27 Swallowing Mushrooms Allergy Difficulty Uncoded 04/14/21 12:27 Swallowing Home Meds: Home Meds . 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 Social & Family History - Family History Family Medical History: No Pertinent Family History - Tobacco Use Tobacco Use Status *Q: Current Every Day Tobacco User Years of Tobacco use: 25 Packs/Tins Daily: 0.5 - Caffeine Use Caffeine Use: Reports: Coffee - Recreational Drug Use Recreational Drug Use: No Review of Systems - Review of Systems Review Of Systems: Comprehensive ROS is negative, except as noted in HPI. ED EXAM, GENERAL - Physical Exam Exam: See Below (See dictation) Course - Vital Signs Last Recorded V/S: Last Vital Signs Temp 98 F 04/14/21 12:27 Pulse 60 04/14/21 14:09 Resp 16 04/14/21 14:09 BP 104/67 04/14/21 12:27 Pulse Ox 95 04/14/21 14:09 - Orders/Labs/Meds Orders: Active Orders 24 hr Category Date Time Status DME for Discharge [COMM] Stat Oth 04/14/21 13:50 Ordered Meds: Medications Discontinued Medications Generic Name Dose Route Start Last Admin Trade Name Freq PRN Reason Stop Dose Admin Ibuprofen 800 mg 04/14/21 12:37 04/14/21 13:00 Ibuprofen 800 Mg Tab PO 04/14/21 12:38 800 mg ONETIME ONE Administration Departure - Departure Time of Disposition: 13:51 Disposition: Home, Self-Care 01 Clinical Impression: Foot injury Qualifiers: Encounter type: initial encounter Laterality: right Qualified Code(s): S99.921A - Unspecified injury of right foot, initial encounter - Discharge Information Instructions: Foot Sprain Referrals: Lesvia Philip MD [Primary Care Provider] - Forms: ED Department Discharge Additional Instructions: The following information is given to patients seen in the emergency department who are being discharged to home. This information is to outline your options for follow-up care. We provide all patients seen in our emergency department with a follow-up referral. The need for follow-up, as well as the timing and circumstances, are variable depending upon the specifics of your emergency department visit. If you don't have a primary care physician on staff, we will provide you with a referral. We always advise you to contact your personal physician following an emergency department visit to inform them of the circumstance of the visit and for follow-up with them and/or the need for any referrals to a consulting specialist. The emergency department will also refer you to a specialist when appropriate. This referral assures that you have the opportunity for follow-up care with a specialist. All of these measure are taken in an effort to provide you with optimal care, which includes your follow-up. Under all circumstances we always encourage you to contact your private physician who remains a resource for coordinating your care. When calling for follow-up care, please make the office aware that this follow-up is from your recent emergency room visit. If for any reason you are refused follow-up, please contact the [facility] Emergency Department at and asked to speak to the emergency department charge nurse. [facility] [address] [place] [id number] [place] [address] 1. Rest, ice, elevate the affected extremity. You can apply ice 15 minutes on, 15 minutes off. Use splint and crutches until follow-up with your primary care provider. 2. Tylenol and/or Ibuprofen as directed for pain management or discomfort. 3. Follow up with the primary care provider as discussed. Return to the ED as needed and as discussed. Sepsis Event Note (ED) - Evaluation Sepsis Screening Result: No Definite Risk - Focused Exam Vital Signs: Vital Signs Temp Pulse Resp BP Pulse Ox 04/14/21 14:09 60 16 95 04/14/21 12:27 98 F 63 16 104/67 99 - My Orders Last 24 Hours: My Active Orders 04/14/21 13:50 DME for Discharge [COMM] Stat - Assessment/Plan Last 24 Hours: My Active Orders 04/14/21 13:50 DME for Discharge [COMM] Stat
--- NOTE | 2021-04-14 13:28 | CR ---
INDICATION: Cord wrapped around right foot. TECHNIQUE: Three views right ankle and two views right foot COMPARISON: None FINDINGS AND IMPRESSION: No acute fracture. Well corticated density at the tip of the lateral malleolus appears chronic and may be sequelae of prior trauma. No dislocation. Ankle mortise is intact. No suspicious bone lesion. Joint spaces are preserved. Tiny plantar calcaneal enthesophytes. No radiopaque foreign body. There is soft tissue swelling at the forefoot and to a lesser degree the dorsum of the midfoot. Dictated by Bill Montague MD @ 04/14/2021 1:28:[address] Bill Montauge @ Apr 14 2021 1:28PM
--- NOTE | 2021-04-14 13:30 | CR ---
INDICATION: Cord wrapped around right foot. TECHNIQUE: Three views right ankle and two views right foot COMPARISON: None FINDINGS AND IMPRESSION: No acute fracture. Well corticated density at the tip of the lateral malleolus appears chronic and may be sequelae of prior trauma. No dislocation. Ankle mortise is intact. No suspicious bone lesion. Joint spaces are preserved. Tiny plantar calcaneal enthesophytes. No radiopaque foreign body. There is soft tissue swelling at the forefoot and to a lesser degree the dorsum of the midfoot. Dictated by Bill Montague MD @ 04/14/2021 1:28:[address] Bill Montague @ Apr 14 2021 1:28PM
[2021-04-14 14:09] VITALS: PULSE 60
== END 2021-04-14 14:09 | disposition home or self-care (01) ==
LOC: MW.ED 11:25
DX: S99.921A Unspecified injury of right foot, initial encounter (principal); J45.909 Unspecified asthma, uncomplicated; Z88.5 Allergy status to narcotic agent; Z91.018 Allergy to other foods; Z72.0 Tobacco use; X50.1XXA Overexertion from prolonged static or awkward postures, initial encounter; Y93.01 Activity, walking, marching and hiking; Y92.59 Other trade areas as the place of occurrence of the external cause
CPT/HCPCS: 73610; 73620; 99283; A9270

== ENCOUNTER 2022-06-05 14:54 | Emergency (ER) | payer SELFPAY ==
[2022-06-05 18:43] VITALS: BP 108/66; PULSE 60
[2022-06-05 21:18] LABS: BLOOD UREA NITROGEN,BUN 11 mg/dL (7.0-18.0); CARBON DIOXIDE,CO2 28.6 mmol/L (21.0-32.0); CHLORIDE,CL 101 mmol/L (98-107); GLUCOSE RANDOM 100 mg/dL (74-106); POTASSIUM,K 3.9 mmol/L (3.5-5.1); SODIUM,NA 137 mmol/L (136-145)
[2022-06-05 21:21] LABS: ESTIMATED GFR 121 mL/min (>60)
== END 2022-06-05 22:29 | disposition home or self-care (01) ==
LOC: MW.ED 14:54
DX: R60.0 Localized edema (principal); Z91.018 Allergy to other foods; Z88.5 Allergy status to narcotic agent; Z88.8 Allergy status to other drugs, medicaments and biological substances; Z87.891 Personal history of nicotine dependence
CPT/HCPCS: 36415; 71045; 71045-26; 80053; 83880; 84484; 84703; 85025; 85379; 93005; 99283; 99284

== ENCOUNTER 2023-02-20 08:04 | Day surgery (SDC) | payer BC ==
[~2023-02-20 08:04] MED LIST: Lactated Ringers 1,000 ML IV SCH; Propofol 200 MG/20 ML SDV ONE; Sodium Chloride 0.9% 10 ML Syringe FLUSH PRN; Sodium Chloride 0.9% 2.5 ML Syringe FLUSH PRN; Sodium Chloride 0.9% 20 ML SDV IV PRN
[2023-02-20] MEDS ORDERED: Midazolam 1 MG/ML 2 ML SDV ONE (11:17)
[2023-02-20] MEDS ORDERED: fentaNYL 100 MCG/2 ML SDV ONE (11:36)
[2023-02-20] MEDS ORDERED: ePHEDrine 50 MG/ML SDV ONE (11:44)
[2023-02-20 13:21] VITALS: BP 109/64; PULSE 83
== END 2023-02-20 12:43 | disposition home or self-care (01) ==
LOC: MW.SDS 08:04
PROVIDERS: ATTEND Surgery
DX: D12.2 Benign neoplasm of ascending colon (principal); K29.50 Unspecified chronic gastritis without bleeding; F41.9 Anxiety disorder, unspecified; J45.909 Unspecified asthma, uncomplicated; F17.210 Nicotine dependence, cigarettes, uncomplicated; K21.9 Gastro-esophageal reflux disease without esophagitis; F32.A Depression, unspecified; M19.90 Unspecified osteoarthritis, unspecified site; Z87.19 Personal history of other diseases of the digestive system; Z88.5 Allergy status to narcotic agent; Z91.018 Allergy to other foods; Z79.899 Other long term (current) drug therapy; Z98.890 Other specified postprocedural states
CPT/HCPCS: 43239; 45380; J2250; J2704; J3010; J7120; 00813; J3490

== ENCOUNTER 2024-05-12 19:13 | Emergency (ER) | payer SELFPAY ==
[2024-05-12] MEDS: Acetaminophen 500 MG Tab PO ONE (19:54)
[2024-05-12] MEDS: oxyCODONE 5 MG Tab PO ONE (19:54)
[2024-05-12] MEDS: Ibuprofen 600 MG Tab PO ONE (19:54)
[2024-05-12 20:31] LABS: APPEARANCE,URINE CLEAR; BILIRUBIN,URINE NEGATIVE (NEGATIVE); COLOR,URINE OTHER; GLUCOSE,URINE NEGATIVE (NEGATIVE); KETONES,URINE 15 mg/dL (NEGATIVE); LEUKOCYTE ESTERASE,URINE NEGATIVE (NEGATIVE); NITRITE,URINE NEGATIVE (NEGATIVE); OCCULT BLOOD,URINE NEGATIVE (NEGATIVE); PROTEIN,URINE NEGATIVE (NEGATIVE)
[2024-05-12 20:34] LABS: CORONAVIRUS COVID-19 NAA NEGATIVE (NEGATIVE)
[2024-05-12 21:22] LABS: INFLUENZA A NAA NEGATIVE (NEGATIVE); INFLUENZA B NAA NEGATIVE (NEGATIVE); RESPIRATORY SYNCYTIAL VIR NAA NEGATIVE (NEGATIVE)
[2024-05-12] MEDS ORDERED: Sodium Chloride 0.9% 10 ML Syringe FLUSH PRN (21:40)
[2024-05-12] MEDS ORDERED: Sodium Chloride 0.9% 2.5 ML Syringe FLUSH PRN (21:40)
[2024-05-12] MEDS: Sodium Chloride 0.9% 1,000 ML IV ONE (21:50)
[2024-05-12 21:52] LABS: BASOPHILS ABSOLUTE AUTO 0.02 K/uL (0.00-0.20); BASOPHILS PERCENT AUTO 0.4 % (0.0-1.0); HEMATOCRIT 39.5 % (37.0-47.0); HEMOGLOBIN 13.1 g/dL (12.0-16.0); IMMATURE GRAN ABSOLUTE AUTO 0.01 K/uL (0.00-0.05); IMMATURE GRAN PERCENT AUTO 0.2 % (0.0-0.4); LYMPHOCYTES ABSOLUTE AUTO 1.14 K/uL (1.00-4.80); LYMPHOCYTES PERCENT AUTO 22.6 % (24.0-44.0); MEAN CORPUSCULAR HGB CONC 33.2 g/dL (32.0-36.0); MEAN CORPUSCULAR VOLUME 90.6 fL (83.0-99.0); MEAN PLATELET VOLUME 10.6 fL (9.4-12.3); MONOCYTES PERCENT AUTO 9.9 % (0.0-8.0); NEUTROPHILS ABSOLUTE AUTO 3.28 K/uL (1.80-7.70); NEUTROPHILS PERCENT AUTO 64.9 % (41.0-71.0); PLATELET COUNT,PLT 243 K/uL (150-400); RED BLOOD CELL COUNT 4.36 M/uL (4.10-5.30); WHITE BLOOD CELL COUNT,WBC 5.05 K/uL (3.9-11.3)
[2024-05-12 22:14] LABS: A/G RATIO 0.9 (0.9-1.6); ALBUMIN 3.2 g/dL (3.4-5.0); BILIRUBIN TOTAL 0.6 mg/dL (0.2-1.0); CALCIUM 8.1 mg/dL (8.5-10.1); CARBON DIOXIDE,CO2 27.3 mmol/L (21.0-32.0); CREATININE 0.7 mg/dL (0.6-1.0); EST CRCL DRUG DOSING (CG) 89.48 mL/min; POTASSIUM,K 3.4 mmol/L (3.5-5.1); PROTEIN TOTAL,TP 6.7 g/dL (6.4-8.2)
[2024-05-12] MEDS: Iopamidol 755 MG/ML 500 ML Multipack Bottle IVPUSH STA (22:23)
[2024-05-12 23:20] VITALS: BP 109/52; PULSE 62
== END 2024-05-12 23:00 | disposition home or self-care (01) ==
LOC: MW.ED 19:13
DX: M54.9 Dorsalgia, unspecified (principal); R53.1 Weakness; J45.909 Unspecified asthma, uncomplicated; Z90.710 Acquired absence of both cervix and uterus; Z91.018 Allergy to other foods
CPT/HCPCS: 0241U; 36415; 74177; 80053; 81003; 83690; 84703; 85025; 96360; 99284; A9270; J7030; Q9967

== ENCOUNTER 2024-07-01 19:01 | Emergency (ER) | payer SELFPAY ==
[2024-07-01] MEDS: Bacitracin Oint 1 GM U/D Packet TOP ONE (19:45)
[2024-07-01] MEDS: Amoxicillin/Clavulanate K 875-125 MG Tab PO ONE (19:45)
[2024-07-01 19:50] VITALS: BP 118/68; PULSE 68
== END 2024-07-01 19:56 | disposition home or self-care (01) ==
LOC: MW.ED 19:01
DX: S91.052A Open bite, left ankle, initial encounter (principal); Z90.710 Acquired absence of both cervix and uterus; J45.909 Unspecified asthma, uncomplicated; Z91.018 Allergy to other foods; W54.0XXA Bitten by dog, initial encounter
CPT/HCPCS: 99283; A9270